=== PATIENT | male | born 1995 | race Caucasian/White ===

== ENCOUNTER 2023-01-21 18:35 | Emergency (ER) | payer SELFPAY ==
[~2023-01-21] VITALS: Ht 172.7 cm; Wt 70.4 kg
[2023-01-21 18:48] VITALS: BP 144/54; PULSE 62; RESP 20; TEMP 98.3; O2SAT 98
--- NOTE | 2023-01-21 19:30 | NUR ---
pt to bed #6
--- NOTE | 2023-01-21 19:40 | NUR ---
27 Y/O M BIB self from home presents with both eyes burning,teary and itching. pt stated he was in a boxing match xyesterday. both eyes have reddness with swelling. pt denies vision loss, NVD, headaches, or ABD pain. pt is A&Ox4, skin intact, ambulatory. pmh- pt denies NKA
[2023-01-21 19:45] VITALS: BP 144/54; PULSE 62; RESP 20; TEMP 98.3; O2SAT 98
[2023-01-21] MEDS ORDERED: LORA10TA19 PO (19:51)
[2023-01-21] MEDS ORDERED: AZEL6SOL6 OP (19:51)
--- NOTE | 2023-01-21 20:20 | NUR ---
per pt. request, took pt. to eyewash station to flush out eyes
--- NOTE | 2023-01-21 20:22 | NUR ---
Patient discharged with v/s stable. Written and verbal after care instructions given and explained. Patient alert, oriented and verbalized understanding of instructions. Ambulatory with steady gait. All questions addressed prior to discharge. ID band removed. Patient advised to follow up with PMD. Rx of azelastine HCI and Claritan given.Opportunity to ask questions provided and answered.
== END 2023-01-21 20:22 | disposition home or self-care (01) ==
LOC: EDBD 18:35 → MED 18:35
DX: H10.9 Unspecified conjunctivitis (principal); Z79.899 Other long term (current) drug therapy
CPT/HCPCS: 99283